=== PATIENT | male | born 1955 | race Caucasian/White ===

== ENCOUNTER → 2018-02-17 09:48 | Outpatient (CLI) | payer MEDICAID, SELFPAY ==
[2018-02-17 12:46] LABS: PSA,Total - Annual Screen < 0.01 ng/mL (0.00-4.00)
== END ==
PROVIDERS: Family Provider Family Medicine; PCP Family Medicine; Visit Provider Urology
DX: C61 Malignant neoplasm of prostate (principal)
CPT/HCPCS: 36415; 84153; G0103

== ENCOUNTER → 2018-06-23 10:52 | Outpatient (CLI) | payer MEDICAID, SELFPAY ==
[2018-06-23 12:30] LABS: Absolute Lymphocyte Count 1.28 X10^3/ul (0.83-4.51); Absolute Neutrophil Count 4.6 X10^3/uL (2.0-7.7); Basophil# 0.02 X10^3/uL; Basophil% 0.3 % (0-1); Eosinophil# 0.35 X10^3/uL; Eosinophils% 5.1 % (0-5); Hematocrit 46.1 % (40-54); Hemoglobin 15.1 g/dl (13.0-16.5); Lymphocyte # 1.28 X10^3/ul (4.0); Lymphocyte % 18.6 % (19-41); Mean Corp Hgb Conc 32.8 g/gl (32-36); Mean Corpuscular Hgb 30.3 pg (27.0-32.0); Mean Corpuscular Volume 92.4 fL (80-94); Mean Platelet Vol. 10.2 fl (6.2-12.0); Monocyte# 0.65 X10^3/uL; Monocyte% 9.4 % (0-10); Neutrophil # 4.58 X10^3/uL (2.7-7.7); Neutrophil % 66.6 % (47-70); POSITIVE COUNT NO; POSITIVE DIFFERENTIAL NO; POSITIVE MORPHOLOGY NO; Platelet Count 279 K/mm3 (150-450); RBC Distribution Width CV 13.4 % (11.6-14.6); RBC Distribution Width SD 44.9 fl (35.1-43.9); Red Blood Count 4.99 M/mm3 (4.6-6.2); White Blood Count 6.9 K/mm3 (4.4-11.0)
[2018-06-23 13:21] LABS: ALB/GLOB Ratio 0.9 RATIO (0.9-2.4); AST(SGOT) 26 U/L (15-37); Alanine Aminotransfer ALT/SGPT 41 U/L (16-61); Albumin, Serum 3.5 g/dL (3.2-5.0); Alkaline Phosphatase 64 U/L (45-117); Anion Gap 11 (5-15); BUN 21 mg/dL (7-18); BUN/Creat Ratio 16.2 RATIO (10-20); Calcium,Total 8.8 mg/dL (8.5-10.1); Chloride 106 mmol/L (98-107); EST Glomerular Filtration Rate 60 mL/min (>60); Est Glom Filt Rate - Afr Amer 72 mL/min (>60); Globulin 3.9 g/dL (2.2-4.2); Glucose 136 mg/dL (74-106); Magnesium 2.4 mg/dL (1.6-2.6); Potassium 3.7 mmol/L (3.5-5.1); Protein, Total 7.4 g/dL (6.4-8.2); Sodium Level 141 mmol/L (136-145); T4 Total, Thyroxin 11.2 ug/dL (4.5-12.1); Thyroid Stim Hormone (TSH) 1.55 uIU/mL (0.358-3.74)
== END ==
PROVIDERS: Family Provider Family Medicine; PCP Family Medicine; Visit Provider Family Medicine
DX: E03.9 Hypothyroidism, unspecified (principal); K21.9 Gastro-esophageal reflux disease without esophagitis; R53.81 Other malaise; R53.83 Other fatigue
CPT/HCPCS: 36415; 80053; 83735; 84436; 84443; 85025

== ENCOUNTER → 2019-02-16 11:14 | Outpatient (CLI) | payer MEDICAID, SELFPAY ==
[2017-03-15 10:44] VITALS: BMI 32.1
[2019-02-16 13:52] LABS: PSA,Total- Diagnostic < 0.01 ng/mL (0.0-4.0)
== END ==
PROVIDERS: Family Provider Family Medicine; PCP Family Medicine; Referring Provider Urology; Visit Provider Urology
DX: C61 Malignant neoplasm of prostate (principal)
CPT/HCPCS: 36415; 84153

== ENCOUNTER → 2019-06-01 10:50 | Outpatient (CLI) | payer MEDICAID, SELFPAY ==
[2017-03-15 10:44] VITALS: BMI 32.1
--- NOTE | 2019-06-01 11:05 | RAD_ITS ---
STUDY: X-RAY - RIGHT KNEE REASON FOR EXAM: Male, 63 years old. Medial pain. TECHNIQUE: 4 view(s) of the knee. COMPARISON: Right tibia-fibula radiographs that included the right knee 03/15/2017. FINDINGS: Normal visualized distal femur. Normal visualized proximal tibia and fibula. Normal proximal tibiofibular articulation. Pronounced narrowing of the medial femorotibial compartment with mild increase in sclerosis of the medial tibial plateau. Normal lateral femorotibial compartment. Normal patellofemoral articulation. The soft tissue structures are unremarkable. RAD/Knee 4 or More Views IMPRESSION: 1. More pronounced narrowing of the medial femorotibial compartment of the right knee and increased sclerosis of the medial tibial plateau when compared to 03/15/2017. 2. No acute osseous abnormality of the right knee. Electronically Signed: Raúl Viera MD at 16:07 EDT , Service support ,
== END ==
PROVIDERS: Family Provider Family Medicine; PCP Family Medicine; Referring Provider Family Medicine; Visit Provider Family Medicine
DX: M25.561 Pain in right knee (principal)
CPT/HCPCS: 73564

== ENCOUNTER → 2019-06-22 09:08 | Outpatient (CLI) | payer MEDICAID, SELFPAY ==
[2019-06-08 11:05] VITALS: BMI 31.3
--- NOTE | 2019-06-22 09:10 | MRI_ITS ---
STUDY: MRI RIGHT KNEE REASON FOR EXAM: Right knee pain for 6-8 weeks, arthroscopic surgery 12 years ago. TECHNIQUE: Standardized fat and water weighted pulse sequences were obtained in all 3 orthogonal planes. COMPARISON: Radiographs 06/01/2019 and MR images 04/01/2007. FINDINGS: There is a partial medial meniscectomy. There is a complex signal alteration of the posterior horn of the medial meniscus (proton density sagittal images 31-35), either scarring or recurrent medial meniscal tear. There is peripheral subluxation of the medial meniscus. There is arthrosis of the medial femorotibial compartment with small marginal osteophytes, chondral loss (T2 sagittal image 18) and slight subchondral bone edema. Normal medial collateral ligamentous complex (MCL). Normal distal semimembranosus, gracilis and semitendinosus tendons. Normal lateral meniscus. Normal hyaline cartilage of the lateral femorotibial compartment. Normal lateral femoral condyle and tibial plateau. Normal proximal tibiofibular articulation. Normal lateral collateral (fibular) ligament. Normal popliteus tendon. Normal biceps femoris tendon. There is mild intrasubstance mucoid degeneration of the anterior cruciate ligament (T2 sagittal image 12). Normal posterior cruciate ligament (PCL). Normal congruent patellofemoral articulation. Normal hyaline cartilage of the patellofemoral compartment. Normal medial and lateral patellar retinaculum. Normal quadriceps tendon. Normal patellar tendon. Normal Hoffa's fat pad. There is a small joint effusion. There is an intra-articular body in the distal popliteus tendon sheath (T2 coronal images 13, 14). There is a small popliteal cyst with extravasation of fluid (T2 coronal images 9, 10). There is a strain of the semimembranosus musculotendinous junction (T2 sagittal images 15-17) The otherwise visualized osseous structures are unremarkable. MRI/Lower Ext Joint Only (Routine) IMPRESSION: Partial medial meniscectomy with signal alteration of the posterior horn of the medial meniscus, either scarring or recurrent medial meniscal tear. Arthrosis of the medial femorotibial compartment. Strain of the semimembranosus musculotendinous junction. Small joint effusion. Small popliteal cyst with extravasation of fluid. Intra-articular body in the distal popliteus tendon sheath. Electronically Signed: Isaiah Muñiz MD at 10:54 EDT Tel , Service support ,
--- NOTE | 2019-06-22 09:15 | RAD_ITS ---
STUDY: X-RAY - ORBITS REASON FOR EXAM: Male, 63 years old. This study is being performed as a clearance examination for exclusion of orbital metal, prior to the performance of an MRI examination. TECHNIQUE: 2 view(s) of the orbits were obtained. COMPARISON: None. FINDINGS: Normal bilateral orbits without a metallic orbital foreign body. Normal visualized facial bones. Normal paranasal sinuses. The soft tissue structures are unremarkable. RAD/Orbits for Foreign Body IMPRESSION: No demonstrated metallic orbital foreign body. The patient is cleared for an MRI examination. Electronically Signed: Aaron Rg MD at 9:49 EDT Tel [phone], Service support ,
== END ==
PROVIDERS: Family Provider Family Medicine; PCP Family Medicine; Referring Provider Orthopaedic Surgery; Visit Provider Orthopaedic Surgery
DX: M25.561 Pain in right knee (principal)
CPT/HCPCS: 70030; 73721

== ENCOUNTER 2019-07-26 12:42 | Observation (INO) | payer MEDICAID, SELFPAY ==
[2019-06-29 10:18] VITALS: BMI 31.3
--- NOTE | 2019-07-07 15:03 | CASEMGMT ---
Social Work Note Marcie updated this worker that pt called in and wanted to know the game plan for pt after his surgery. Pt provided number [phone]. SW placed a call back to pt, call went straight to voicemail. SW left message for Sourav and updated him that this worker doesn't know what the game plan will be for pt as it depends on how pt's surgery goes and how well pt does after surgery. SW explained different options of HHC, outpatient therapy, and SNF and again explained that it just depends on how pt does after his surgery. SW provided direct number in the event Sourav would like to call this worker. Melissa Parr TRAVELING NURSE, [employer] SYSTEM INST[employer]ER
[2019-07-11 13:31] VITALS: BMI 31.3
[2019-07-19 15:37] VITALS: BP 112/89; PULSE 80; RESP 16; TEMP 36.9; O2SAT 98; BMI 30.8
[2019-07-19 17:20] LABS: Hematocrit 45.6 % (40-54); Hemoglobin 14.6 g/dL (13.0-16.5); Mean Corpuscular Hgb 29.9 pg (27.0-32.0); Mean Corpuscular Volume 93.4 fL (80-94); Mean Platelet Vol. 9.5 fl (6.2-12.0); Platelet Count 354 K/mm3 (150-450); RBC Distribution Width CV 12.3 % (11.6-14.6); RBC Distribution Width SD 42.7 fl (35.1-43.9); Red Blood Count 4.88 M/mm3 (4.6-6.2); White Blood Count 9.1 K/mm3 (4.4-11.0)
[2019-07-19 18:09] LABS: Thyroid Stim Hormone (TSH) 2.56 uIU/mL (0.358-3.74)
[2019-07-26] VITALS (10 sets, daily range): BP systolic 94–125; BP diastolic 52–87; PULSE 73–95; RESP 14–18; TEMP 36.3–36.9; O2SAT 93–100; BMI 30.8
--- NOTE | 2019-07-26 07:15 | PCM.HP.BLA ---
History and Physical Date of Admission: 07/26/19 Intake Vital Signs 06/29/19 Body Mass Index (BMI) 31.3 Intake Visit Reasons: R. KNEE Allergies No Known Allergies Allergy (Verified 03/15/17 10:45) Medications Levothyroxine [Synthroid] 50 mcg PO DAILY 03/15/17 [History Confirmed 06/29/19] amlodipine 5 mg tablet PO #30 tab 06/08/19 [History Confirmed 06/29/19] lisinopril 20 mg tablet PO #30 tab 06/29/19 [History Confirmed 06/29/19] [facility] Social History Smoking Status: Former smoker HPI R. KNEE : Details: Parts of this documentation were recorded by a scribe, this documentation accurately reflects the service provided and the decisions made by me, Braxton Vyas, 06/29/19 1017. NAHOMI MCCAULEY is a 64 year old M here today for right knee pain. Patient is here for F/U after MRI of the [facility] tknee. Patient is having painful catching and popping of the right knee. Most of his kene pain is medial and posterior knee pain. Denies numbness, tingling or other associated symptoms. Has been wearing a knee sleeve. Had an arthroscopy in 2006 but denies any previous injections. ROS Const Reports system reviewed and no additional complaints, except as docu Eyes Reports system reviewed and no additional complaints, except as docu ENT Reports system reviewed and no additional complaints, except as docu Card Reports system reviewed and no additional complaints, except as docu Resp Reports system reviewed and no additional complaints, except as docu GI Reports system reviewed and no additional complaints, except as docu Reports system reviewed and no additional complaints, except as docu Musc Reports system reviewed and no additional complaints, except as docu, Reports as per HPI Skin/Breast Reports system reviewed and no additional complaints, except as docu Neuro Yes system reviewed and no additional complaints, except as docu Psych Reports system reviewed and no additional complaints, except as docu Endo Reports system reviewed and no additional complaints, except as docu Jose/Lymph Reports system reviewed and no additional complaints, except as docu Aller/Immun Reports system reviewed and no additional complaints, except as docu Ortho Exam Right Knee Skin/Wound: No erythema, No ecchymosis, No swelling Homans Sign: No Knee ROM: No ROM-Extension -20 to 0 (lacking 3 ), No ROM-Flexion 0-140 (115) Stability: NML: Anterior Drawer, NML: Posterior Drawer KNEE: no joint effusion significant pain with medial isiah. Assessment & Plan Problems 1. Primary osteoarthritis of right knee M17.11 Plan Personally reviewed patients MRI of the right knee. Patient educated that he does have bone on bone medial sided knee OA. Options for this would be right TKA or medial freelance operator brace or steroid injection or gel-injections or PRP injection. Recommended the trial of a steroid injection of the right knee but with this he wouldn't be able to have a knee replacement until 12 weeks after injection if the injection is not effective. Patient wishes to discuss TKA as apposed to the injections. Reviewed the pre-operative plans with the patient. Risks and benefits of the procedure were fully explained, including but not limited to infection, neurovascular injury, continued pain, arthritis, stiffness, need for further surgery, re-injury, DVT, PE, general risks of anesthesia, and loss of limb or life. The patient understands all the risks and does wish to proceed with written consent. Educated that he will be on blood thinner for 2 weeks post op to aid in prevention of blood clots. Educated that the procedure takes about 60 minutes. Educated that the most important component post op is getting up and moving. Also given the option for Iovera treatment 10-14 days pre-op. Educated that is may take up to 6 weeks for him to feel comfortable with driving. Recommended preparing to take 8 weeks off work. Patient is wishing to have surgery 07/26/19 if this date changes patient will call the office. Follow up 2 weeks post op or to re-sign consent or sooner if pain, swelling, numbness or associated symptoms, or concerns develop. All questions answered. Patient in agreement of plan. Coding Diagnoses Primary osteoarthritis of right knee M17.11 I have re-examined the patient. There are no clinical changes since date of exam
[2019-07-26] MEDS: Scopolamine 1mg/72hr Patch 1 PATCH TRANSDERM. (07:30)
[2019-07-26] MEDS: Gabapentin 600 MG Tablet PO (07:30)
[2019-07-26] MEDS: Acetaminophen 500 MG Tablet 1000 MG PO ×3 (07:30→23:03)
[2019-07-26] MEDS: Lactated Ringers 1,000 ML 100 ML IV (08:05)
[2019-07-26] MEDS: Magnesium Sulfate 4gm/100mL 4 GM/100 ML IV.SOLN. IV (08:05)
[2019-07-26 08:45] LABS: Bedside Glucose 194 mg/dL (70-110)
[2019-07-26] MEDS: Cefazolin 2 GM in 0.9% Normal Saline 100 ML IV (10:49)
[2019-07-26] MEDS: dexAMETHasone 10 MG/ML Vial IV (11:02)
[2019-07-26] MEDS: Epinephrine (1 mg/ml) 1 MG/ML VIAL (12:06)
[2019-07-26] MEDS: Betamethasone/Betamethasone 30 MG/5 ML Vial (12:06)
[2019-07-26] MEDS: Bupivacaine Mpf 0.5% 30 ML VIAL (12:07)
--- NOTE | 2019-07-26 12:44 | OP.PCM_ITS ---
Report of Operation Date of Procedure: 07/26/19 Description of Surgical Findings:: Preoperative diagnosis: Right knee DJD Postoperative diagnosis: Same Procedure: Right total knee arthroplasty Implant: [place] tri[employer]lon cemented right femoral component size 4, cemented tibial baseplate size 5, cemented asymmetric patella size 32, polyethylene X3 size 9 CS Anesthesia: Spinal with adductor canal block Tourniquet time: 62 minutes at 300 mmHg Complications: None Condition: Stable to PACU Estimated blood loss: 30 cc Indication for procedure: This is a 64-year-old male with long standing degenerative joint disease of the knee who has failed conservative treatment and wished to proceed with elective total knee arthroplasty. Risk benefits and alternatives were reviewed including; risk of bleeding, infection, nerve artery and tissue damage, continued pain, postoperative stiffness, venous thromboembolism, need for postoperative rehabilitation, mechanical feel to the knee, and expected postoperative course. Procedure: The patient was met in the preoperative holding area. The operative extremity was identified by both patient and physician and was marked. Patient was met by anesthesia. An adductor canal block was placed by anesthesia postoperatively the patient was brought back to the operating room on a wheeled cart and transferred to the operating table in the supine position. Anesthesia was started. A well-padded tourniquet was placed on the operative extremity. The patient was prepped and draped in the usual sterile fashion. A timeout was called to ensure the proper patient procedure and extremity were being contemplated. An Esmarch was used to exsanguinate the extremity. The tour niquet was inflated. A 10 blade scalpel was used to make a midline incision down through the skin and subcutaneous tissue. Skin retractors placed. Bovie was used to perform meticulous hemostasis. full-thickness flaps were elevated medial and lateral along the joint capsule. A deep blade scalpel was used to perform a medial parapatellar arthrotomy. The knee was brought to full extension. A Bovie was used to release the soft tissues off the most proximal aspect of the medial tibial plateau a three-quarter inch curved osteotome was also used for this process. The infrapatellar fat pad was excised. The fat pad was excised partially anterior lateral portion the anterior medial was elevated from the femur. the patella was everted. The knee was brought into flexion. An intramedullary drill was used followed by flexible intramedullary guide suzette. The distal femoral cutting block was placed and set to remove 10 mm of bone and 5 degrees of valgus. The block was secured with pins and an oscillating saw was used to complete the distal femoral cut. During this, and all bony cuts retractors were used to protect the collateral ligaments. At this point a femoral sizer was used to measure the AP dimension of the femur. The sizer block was pinned parallel to the epicondylar access for external rotation. The sizing block was removed and the appropriately sized 4-in-1 cutting block was placed over the previously made pinholes. It was checked with an mario wing and the block was secured with pins. An oscillating saw was used to complete the anterior cut followed by the posterior cut followed by the posterior chamfer cut followed by the anterior chamfer cut. The block was removed as well as the fragments. A ronguer was used to remove excess osteophytes. The medial and lateral meniscus were excised as well as the ACL. At this point a PCL retractor was placed and an intramedullary drill was passed down the tibial canal followed by a solid intramedullary guide suzette. The tibial cutting block was attached and set to remove 9 mm of bone from the high side. This was checked with an external alignment drop suzette for slope and tilt. It was pinned into place. An oscillating saw was used to complete the tibial plateau cut and the block was removed. A large osteotome was used to elevate the fragment and a Allison and a Bovie were used to free the fragment from the surrounding soft tissue. A rongeur was once again used to remove osteophytes a lamina machine operators was used to evaluate the posterior capsular structures. A three-quarter inch curved osteotome was used to remove posterior osteophytes. A spacer block was inserted in both extension and flexion to ensure adequate spacing. Trials were inserted full extension and flexion were achieved in varus and valgus stability throughout range of motion were seen, balancing techniques were performed. At this point the attention was turned towards the patella. A caliper was used to ensure sufficient bone stock to remove 10 mm of bone. A reamer was used to perform this task. Lug holes were made for the appropriate-sized patella. The patella trial was inserted and there was good patellar tracking with knee range of motion. The tibial baseplate was allowed to float into rotation and was marked on the tibial plateau with a Bovie. Lug holes were made in the femur and trials were removed. The tibial baseplate was then sized and its preparation was completed with a fin punch. The knee was thoroughly irrigated. A posterior capsular injection was performed with our standard cocktail. The knee was brought into flexion and irrigated again. The tibial baseplate was cemented. Excess cement was removed with curettes. The polyethylene component was inserted. The femoral component was cemented. The knee was brought into full extension and placed on a bump. The patellar component was cemented. At this point a Betadine rinse was placed and thoroughly irrigated after a few minutes. This was followed by an Iricept rinse which was allowed to sit for 1 minute and then thoroughly irrigated.At this point all gloves were changed. The knee was thoroughly irrigated the joint capsule was closed with #1 Ethibond. Tourniquet was let down followed by 0 Vicryl and 2-0 Vicryl in the subcutaneous tissues. followed by patsy in the skin. Dressing was applied in the form of Mepilex silver dressing web roll and an Pollo wrap from the foot to the groin. The patient tolerated the procedure well, all counts were correct patient was brought back to the PACU in stable condition.
[2019-07-26 13:15] LABS: Bedside Glucose 167 mg/dL (70-110)
[2019-07-26] MEDS: Lactated Ringers 1,000 ML 125 ML IV ×2 (13:25→19:58)
--- NOTE | 2019-07-26 13:33 | RAD_ITS ---
STUDY: X-RAY - RIGHT KNEE REASON FOR EXAM: Postop. TECHNIQUE: 2 view(s) of the knee. COMPARISON: Radiographs 06/01/2019. FINDINGS: There is a right total hip arthroplasty without evidence of complication. There is postoperative gas in the soft tissues and overlying skin patsy. RAD/Knee 1 or 2 Views IMPRESSION: Uncomplicated right total knee arthroplasty. Electronically Signed: Isaiah Muñiz MD at 13:54 EDT Tel , Service support ,
[2019-07-26] MEDS: Cefazolin 1 GM/50 ML BAG IV ×2 (17:02→23:02)
[2019-07-26] MEDS: amLODIPine 5 MG Tablet PO (23:03)
[2019-07-26] MEDS: Senna/Docusate Sodium 1 Tablet 2 TABLET PO (23:04)
[2019-07-26] MEDS: oxyCODONE HCl Cr 10 MG Tablet PO (23:04)
[2019-07-27] MEDS: Levothyroxine 50 MCG Tablet PO (01:58)
[2019-07-27 02:01] VITALS: BP 120/62; PULSE 78; RESP 18; TEMP 36.7
[2019-07-27 05:53] LABS: Hematocrit 37.3 % (40-54); Hemoglobin 12.3 g/dL (13.0-16.5); Mean Corpuscular Hgb 30.5 pg (27.0-32.0); Mean Corpuscular Volume 92.6 fL (80-94); Mean Platelet Vol. 9.4 fl (6.2-12.0); Platelet Count 313 K/mm3 (150-450); RBC Distribution Width CV 12.7 % (11.6-14.6); RBC Distribution Width SD 43.3 fl (35.1-43.9); Red Blood Count 4.03 M/mm3 (4.6-6.2); White Blood Count 18.2 K/mm3 (4.4-11.0)
[2019-07-27 06:16] LABS: Anion Gap 8 (5-15); BUN 17 mg/dL (7-18); BUN/Creat Ratio 14.4 RATIO (10-20); Calcium,Total 8.4 mg/dL (8.5-10.1); Chloride 109 mmol/L (98-107); Creatinine, Serum 1.18 mg/dL (0.70-1.30); EST Glomerular Filtration Rate 67 mL/min (>60); Est Glom Filt Rate - Afr Amer 80 mL/min (>60); Estimated Creatinine Clearance 60.69 ml/min; Glucose 143 mg/dL (74-106); Potassium 4.4 mmol/L (3.5-5.1); Sodium Level 142 mmol/L (136-145)
[2019-07-27] MEDS: Acetaminophen 500 MG Tablet 1000 MG PO ×3 (06:57→21:50)
[2019-07-27] MEDS: Cefazolin 1 GM/50 ML BAG IV (07:00)
[2019-07-27] MEDS: Lactated Ringers 1,000 ML 125 ML IV (07:01)
[2019-07-27] MEDS: oxyCODONE 5 MG Tablet PO ×3 (07:32→20:01)
--- NOTE | 2019-07-27 10:15 | CASEMGMT ---
RN CM Face to Face with patient for initial transition planning/care coordination assessment. RN CM introduced self and role at [facility]. Patient sitting in chair, alert and oriented. Patient willing to participate in assessment and is able to answer all questions appropriately. Care providers, pharmacy, and demographics verified. Patient wishes to discharge home and would like HHC, list provided to patient of in-network HHC companies to review. Patient states he has no further needs or concerns at this time. CM to follow for discharge planning needs that may arise. PCP: Sangeetha Specialists: Sees a urologist in [place] Preferred Pharmacy: [facility] Insurance: [employer] Prescription Benefit: yes Living Will/HPOA: none LNOK: Friend, sisters Living Arrangements: Patient lives alone in 3 story home with bed and bath on the 2nd floor Transportation: sisters, friends DME/HHC: Patient states he has shower chair, BSC, grab bars, walker, cpap at home. Patient to review list of HHC and CM will follow-up. Disposition Plan: Patient to discharge home with HHC, family support, and follow-up plans in place. Melissa FERNANDEZ, RN, CM
[2019-07-27] MEDS: Cyanocobalamin 500 MCG Tablet 1000 MCG PO (10:51)
[2019-07-27] MEDS: Lisinopril 20 MG Tablet PO (10:51)
[2019-07-27] MEDS: Pantoprazole Sodium 20 MG Tablet PO (10:51)
[2019-07-27] MEDS: Senna/Docusate Sodium 1 Tablet 2 TABLET PO ×2 (10:51→21:50)
[2019-07-27] MEDS: oxyCODONE HCl Cr 10 MG Tablet PO (10:55)
[2019-07-27] MEDS: APIXABAN 2.5 MG TABLET PO ×2 (10:55→21:50)
[2019-07-27] MEDS: Ascorbic Acid 500 MG Tablet PO (10:57)
[2019-07-27 11:00] VITALS: BP 131/77; PULSE 79; RESP 18; TEMP 36.6; O2SAT 99
--- NOTE | 2019-07-27 13:33 | DCINST_ITS ---
Weight Bearing Status: Weight bearing as tolerated Call your doctor if you observe: Fever of 101 or Higher, Shortness of breath, Chest pain Additional Instructions: Ice and elevate next week while not ambulating. Encourage ambulation weightbearing as tolerated. Encourage FULL knee extension and flexion 1 time EVERY time you get up and down and MULTIPLE times per day. Begin showering postop day #3. Remove the dressing prior to shower gently wash with warm water and antibacterial soap then pat dry place ABD pad and DEB hose over top. This is to be done daily. do not submerge for 3 weeks. If not showering daily must clean incision and change dressing daily. Do not allow animals near incision keep clean. Follow anticoagulation recommendations. Call Dr. Vyas with any concerns. Allergies/Adverse Reactions: Allergies No Known Allergies Allergy (Verified 03/15/17 10:45) Medications to take at Discharge Levothyroxine [Synthroid] 50 mcg PO DAILY 03/15/17 amlodipine 5 mg tablet 5 mg PO QHS #30 tab 06/08/19 lisinopril 20 mg tablet 20 mg PO DAILY #30 tab 06/29/19 Ascorbic Acid [Vitamin C] 500 mg PO DAILY 07/19/19 Cyanocobalamin (Vitamin B-12) [Vitamin B-12] 1,000 mcg PO DAILY 07/19/19 Esomeprazole Magnesium [Nexium 24Hr] 20 mg PO DAILY 07/19/19 Glucos Sul 2Kcl/MSM/Chond/C/Mn [Glucosamine Chondroitin Cap] 1 ea PO DAILY 07/19/19 Hyalur AC/Chond Sul/Colg II/Aa [Hyaluronic Acid 40 mg Capsule] 1 ea PO DAILY 07/19/19 Multivitamin with Minerals [Multiple Vitamin] 1 ea PO DAILY 07/19/19 Acetaminophen [Tylenol] 1,000 mg PO Q8 #100 tab 07/27/19 Apixaban [Eliquis] 2.5 mg PO BID #42 tab 07/27/19 Oxycodone [Oxyir] 5 - 10 mg PO Q4H PRN PRN 7 Days #60 tablet 07/27/19 The following prescriptions were given: Apixaban [Eliquis] 2.5 mg PO BID #42 tab Transmission Status: Pending to [facility] Oxycodone [Oxyir] 5 - 10 mg PO Q4H PRN PRN 7 Days #60 tablet PRN Reason: Mod-Severe Pain (4-08/11) Transmission Status: Sent to [facility] Acetaminophen [Tylenol] 1,000 mg PO Q8 #100 tab Transmission Status: Pending to [facility] #[facility] Primary Care Physician: Elida Vivas MD [Primary Care Provider] - Test Results: Test results from this visit will be discussed in further detail at your follow- up appointment, if applicable. Please Follow Up With: Braxton Vyas DO - 2 Weeks
--- NOTE | 2019-07-27 13:42 | PCM.PN.ORT ---
Subjective: complaint of anterior knee pain. He does not feel comfortable being discharged home today he feels that as he has a trilevel house and no one at home he would feel more comfortable getting additional physical therapy before returning home. - Physical Exam General: Alert, Oriented x3, Cooperative, No apparent distress Extremities: - - Compartment soft neurovascular intact EHL tibialis anterior gastrocsoleus dressing clean dry and intact Vital Signs Temp Pulse Resp BP Pulse Ox 97.9 F 79 18 131/77 H 99 07/27/19 11:00 07/27/19 11:00 07/27/19 11:00 07/27/19 11:00 07/27/19 11:00 Oxygen Flow Rate (L/min) 6 Oxygen Delivery Method Room Air Weight: 196 lb 13.965 oz Body Mass Index (BMI) 30.8 Intake and Output for Last 24 Hours 07/25/19 07/26/19 07/27/19 23:59 23:59 23:59 Intake Total 2961.25 / 2961.25 1625.00 / 1625.00 Output Total 100 / 1175 2275 / 2275 Balance 2861.25 / 1786.25 -650.00 / -650.00 Laboratory Tests Past 24 Hrs 07/27/19 07/27/19 05:30 05:30 WBC 18.2 H RBC 4.03 L Hgb 12.3 L Hct 37.3 L MCV 92.6 MCH 30.5 MCHC 33.0 RDW Std Deviation 43.3 RDW Coeff of Garth 12.7 Plt Count 313 MPV 9.4 Sodium 142 Potassium 4.4 Chloride 109 H Carbon Dioxide 25.0 Anion Gap 8 BUN 17 Creatinine 1.18 Estim Creat Clear Calc 60.69 Est GFR (MDRD) Af Amer 80 Est GFR (MDRD) Non-Af 67 BUN/Creatinine Ratio 14.4 Glucose 143 H Calcium 8.4 L Medical Necessity - Tobacco Use Smoking Status: Former smoker Tobacco Use: Non-smoker Assessment/Plan Postop day #1 right total knee arthroplasty DVT prophylaxis SCDs Eliquis DEB hose PT OT OT weightbearing as tolerated She does not feel comfortable being discharged home requesting further additional therapy in the hospital We will keep him overnight for additional therapy and discharge tomorrow with home health care his pain regimen is okay at this point
--- NOTE | 2019-07-27 14:50 | CASEMGMT ---
RN SHREYA NOTE: Call placed to pts [address]st choice of [facility] agency:[facility] w/referral and spoke with Ludmila. She states they are not able to provide assisted care for wounds at this time and unable to provide PT/OT on it's own without assisted services as well. Call placed to pt's 2nd choice of [facility] agency: [facility] of [facility]. Referral made and referral packet faxed to them. Awaiting acceptance. [facility], [place]: PH: [phone] Nisa FERNANDEZ RN CM
[2019-07-27 17:00] VITALS: BP 144/68; PULSE 89; RESP 18; TEMP 36.4; O2SAT 98
[2019-07-27 19:56] VITALS: BP 149/70; PULSE 83; RESP 18; TEMP 37.1; O2SAT 96
[2019-07-27] MEDS: amLODIPine 5 MG Tablet PO (21:50)
[2019-07-28] MEDS: oxyCODONE 5 MG Tablet PO ×4 (01:00→15:04)
[2019-07-28 02:03] VITALS: BP 150/78; PULSE 74; RESP 18; TEMP 36.9; O2SAT 98
[2019-07-28] MEDS: Levothyroxine 50 MCG Tablet PO (02:21)
[2019-07-28] MEDS: Acetaminophen 500 MG Tablet 1000 MG PO ×2 (05:11→14:52)
[2019-07-28 05:40] LABS: Hematocrit 38.2 % (40-54); Hemoglobin 12.2 g/dL (13.0-16.5); Mean Corp Hgb Conc 31.9 g/dL (32-36); Mean Corpuscular Hgb 30.1 pg (27.0-32.0); Mean Corpuscular Volume 94.3 fL (80-94); Mean Platelet Vol. 9.4 fl (6.2-12.0); Platelet Count 320 K/mm3 (150-450); RBC Distribution Width CV 13.1 % (11.6-14.6); RBC Distribution Width SD 45.2 fl (35.1-43.9); Red Blood Count 4.05 M/mm3 (4.6-6.2); White Blood Count 15.4 K/mm3 (4.4-11.0)
[2019-07-28 08:00] VITALS: BP 144/77; PULSE 80; RESP 18; TEMP 37; O2SAT 98
[2019-07-28] MEDS: Cyanocobalamin 500 MCG Tablet 1000 MCG PO (08:28)
[2019-07-28] MEDS: Ascorbic Acid 500 MG Tablet PO (08:29)
[2019-07-28] MEDS: Ketorolac 30 MG/ML Syringe 15 MG IV (10:16)
[2019-07-28] MEDS: Senna/Docusate Sodium 1 Tablet 2 TABLET PO (10:19)
[2019-07-28] MEDS: Lisinopril 20 MG Tablet PO (10:19)
[2019-07-28] MEDS: APIXABAN 2.5 MG TABLET PO (10:19)
[2019-07-28] MEDS: Pantoprazole Sodium 20 MG Tablet PO (10:19)
--- NOTE | 2019-07-28 11:45 | CASEMGMT ---
FILIBERTO CASH called [facility] to confirm HHC setup. [facility] is able to accept the patient with start of care for tomorrow. FILIBERTO CASH updated the patient regarding HHC setup with [facility]. Patient voiced understanding and had no other questions regarding discharge planning.
--- NOTE | 2019-07-28 12:16 | PCM.PN.ORT ---
Subjective: Patient doing pretty well today. He is having some pain which he states has improved some since this morning as it was pretty sore upon waking up. He states that he was able to walk this morning but that it was sore as well. He denies any fevers, chills, shortness of breath, nausea, vomiting, calf pains, numbness or tingling in the leg. He s Objective: Patient is ambulating to the dining room when I arrived. He is alert and oriented x 3, conversive, and cooperative and shows mild signs of discomfort with ambulation. He currently in Deb hose and underling bandage is dry with a very small patch of dried blood on the superior portion of the bandage. There is no erythema or inflammation surrounding the occlusive dressing. Minimal discomfort on palpation around the incision. No evidence of dyspnea while ambulating. - Physical Exam General: Alert, Oriented x3, Cooperative, No apparent distress, Well developed, Well nourished Oral: Moist Mucosa Extremities: No cyanosis, No Calf Tenderness, Peripheral Pulses Normal Skin: No rashes, No breakdown Neurological: Sensory exam intact to light touch and pain Vital Signs Temp Pulse Resp BP Pulse Ox 98.6 F 80 18 144/77 H 98 07/28/19 08:00 07/28/19 08:00 07/28/19 08:00 07/28/19 08:00 07/28/19 08:00 Oxygen Flow Rate (L/min) 6 Oxygen Delivery Method Room Air Weight: 196 lb 13.965 oz Body Mass Index (BMI) 30.8 Intake and Output for Last 24 Hours 07/26/19 07/27/19 07/28/19 23:59 23:59 23:59 Intake Total 2961.25 / 2961.25 1625.00 / 2125.00 800 / 800 Output Total 100 / 1175 2275 / 2275 300 / 300 Balance 2861.25 / 1786.25 -650.00 / -150.00 500 / 500 Laboratory Tests Past 24 Hrs 07/28/19 05:16 WBC 15.4 H RBC 4.05 L Hgb 12.2 L Hct 38.2 L MCV 94.3 H MCH 30.1 MCHC 31.9 L RDW Std Deviation 45.2 H RDW Coeff of Garth 13.1 Plt Count 320 MPV 9.4 Medical Necessity - Tobacco Use Smoking Status: Former smoker Tobacco Use: Non-smoker Assessment/Plan Status post day #2 total knee replacement of the right knee Vitals have been stable He is to continue DEB hose even after discharge and SCDs until discharge Eliquis to be continued for 2 weeks Dressing can be taken off on day 3 and he can shower at that time (gentle cleansing, no scrubbing) Daily dressing changes thereafter monitoring for erythema, discharge, inflammation, or signs of infection notify of calf pains or tenderness. Patient to proceed with home PT / OT (working on getting full extension and working on flexion) weightbearing as tolerated
--- NOTE | 2019-07-28 12:30 | PCM.DC.SUM ---
Discharge Date and Diagnosis Date of Admission: 07/26/19 Date of Discharge: 07/28/19 - Primary Discharge Diagnosis Right total knee replacement secondary to primary osteoarthritis Hospital Course and Treatment Operations: total knee replacement Summary of Care Provided: The patient is a 64 year old M with a history of chronic right knee pain that has failed conservative treatment to this point. As a results of failed conservative treatment patient wanted to proceed with total knee replacement. Patient underwent this procedure on 07-26-19 without any complications. - Physical Exam General: Alert, Oriented x3, Cooperative, No apparent distress - mild discomfort with ambulation and movements, Well developed, Well nourished Oral: Moist Mucosa Extremities: No clubbing, No cyanosis, No Calf Tenderness, Peripheral Pulses Normal Vital Signs Temp Pulse Resp BP Pulse Ox 98.6 F 80 18 144/77 H 98 07/28/19 08:00 07/28/19 08:00 07/28/19 08:00 07/28/19 08:00 07/28/19 08:00 Oxygen Flow Rate (L/min) 6 Oxygen Delivery Method Room Air Weight: 196 lb 13.965 oz Body Mass Index (BMI) 30.8 Intake and Output for Last 24 Hours 07/26/19 07/27/19 07/28/19 23:59 23:59 23:59 Intake Total 2961.25 / 2961.25 1625.00 / 2125.00 800 / 800 Output Total 100 / 1175 2275 / 2275 300 / 300 Balance 2861.25 / 1786.25 -650.00 / -150.00 500 / 500 Laboratory Tests Past 24 Hrs 07/28/19 05:16 WBC 15.4 H RBC 4.05 L Hgb 12.2 L Hct 38.2 L MCV 94.3 H MCH 30.1 MCHC 31.9 L RDW Std Deviation 45.2 H RDW Coeff of Garth 13.1 Plt Count 320 MPV 9.4 Weight Bearing Status: Weight bearing as tolerated Call your doctor if you observe: Fever of 101 or Higher, Shortness of breath, Chest pain Home Medications: Medications to take at Discharge Levothyroxine [Synthroid] 50 mcg PO DAILY 03/15/17 amlodipine 5 mg tablet 5 mg PO QHS #30 tab 06/08/19 lisinopril 20 mg tablet 20 mg PO DAILY #30 tab 06/29/19 Ascorbic Acid [Vitamin C] 500 mg PO DAILY 07/19/19 Cyanocobalamin (Vitamin B-12) [Vitamin B-12] 1,000 mcg PO DAILY 07/19/19 Esomeprazole Magnesium [Nexium 24Hr] 20 mg PO DAILY 07/19/19 Glucos Sul 2Kcl/MSM/Chond/C/Mn [Glucosamine Chondroitin Cap] 1 ea PO DAILY 07/19/19 Hyalur AC/Chond Sul/Colg II/Aa [Hyaluronic Acid 40 mg Capsule] 1 ea PO DAILY 07/19/19 Multivitamin with Minerals [Multiple Vitamin] 1 ea PO DAILY 07/19/19 Acetaminophen [Tylenol] 1,000 mg PO Q8 #100 tab 07/27/19 Apixaban [Eliquis] 2.5 mg PO BID #42 tab 07/27/19 miscellaneous medical supply misc See Rx Instructions .ROUTE .MEDSUPPLY #1 ea 09/05/19 Following Prescrptions Were Given to Patient: Apixaban [Eliquis] 2.5 mg PO BID #42 tab Transmission Status: Received by [facility] #[facility] Acetaminophen [Tylenol] 1,000 mg PO Q8 #100 tab Transmission Status: Received by [facility] Primary Care Physician: Elida Vivas MD [Primary Care Provider] - Please Follow Up With: Braxton Vyas, - 2 Weeks Additional Instructions: Ice and elevate next week while not ambulating. Encourage ambulation weightbearing as tolerated. Encourage FULL knee extension and flexion 1 time EVERY time you get up and down and MULTIPLE times per day. Begin showering postop day #3. Remove the dressing prior to shower gently wash with warm water and antibacterial soap then pat dry place ABD pad and DEB hose over top. This is to be done daily. do not submerge for 3 weeks. If not showering daily must clean incision and change dressing daily. Do not allow animals near incision keep clean. Follow anticoagulation recommendations. Call Dr. Vyas with any concerns. Medical Necessity - Tobacco Use Smoking Status: Former smoker Tobacco Use: Non-smoker Meaningful Use Info Meaningful Use Diagnoses (Choose all that apply): None applicable
[2019-07-28 15:05] VITALS: BP 148/79; PULSE 95; RESP 18; TEMP 36.6; O2SAT 100
--- NOTE | 2019-07-29 10:49 | DS.PCM_ITS ---
Discharge Date and Diagnosis Date of Admission: 07/26/19 Date of Discharge: 07/28/19 Hospital Course and Treatment Operations: total knee replacement, - Summary of Care Provided: The patient is a 64 year old M who has long history of degenerative joint disease to the knee who has failed conservative treatment and wished to undergo elective total knee arthroplasty. Patient underwent the aformentioned procedure on the admission date without any intraoperative complications. Patient did receive pre-and postoperative antibiotics which were discontinued within 23 hours postoperatively. Patient did receive spinal anesthesia as well as an ad ductor canal block postoperatively. pain was controlled with IV and transition to p.o. pain medication Patient will be discharged home with oxycodone and will continue Tylenol as well. Patient had minimal intraoperative blood loss and tranexamic acid was administered there was no need for postoperative blood transfusion her vital signs remained stable. Patient was started on both mechanical and chemical DVT per prophylaxis postoperatively in the form of SCDs DEB hose and Eliquis 2.5 mg twice daily for which she will continue for 2 additional weeks post hospital discharge. Pollo removed post op day number one and thigh high deb hose placed over top of the meplix silver dressing. This should be removed 72 hrs post operatively and showering begun daily at that time with warm water and antibacterial soap. not to submerge for 3 weeks. l change dressing daily at that point. Patient will follow-up in the office in 2 weeks. No intrahospital complications. - Physical Exam General: Alert, Oriented x3, Cooperative Extremities: - - unChanged Vital Signs Temp Pulse Resp BP Pulse Ox 97.9 F 95 18 148/79 H 100 07/28/19 15:05 07/28/19 15:05 07/28/19 15:05 07/28/19 15:05 07/28/19 15:05 Oxygen Flow Rate (L/min) 6 Oxygen Delivery Method Room Air Weight: 196 lb 13.965 oz Body Mass Index (BMI) 30.8 Intake and Output for Last 24 Hours 07/27/19 07/28/19 07/29/19 23:59 23:59 23:59 Intake Total 1625.00 / 2125.00 800 / 800 Output Total 2275 / 2275 300 / 300 Balance -650.00 / -150.00 500 / 500 Weight Bearing Status: Weight bearing as tolerated Call your doctor if you observe: Fever of 101 or Higher, Shortness of breath, Chest pain Home Medications: Medications to take at Discharge Levothyroxine [Synthroid] 50 mcg PO DAILY 03/15/17 amlodipine 5 mg tablet 5 mg PO QHS #30 tab 06/08/19 lisinopril 20 mg tablet 20 mg PO DAILY #30 tab 06/29/19 Ascorbic Acid [Vitamin C] 500 mg PO DAILY 07/19/19 Cyanocobalamin (Vitamin B-12) [Vitamin B-12] 1,000 mcg PO DAILY 07/19/19 Esomeprazole Magnesium [Nexium 24Hr] 20 mg PO DAILY 07/19/19 Glucos Sul 2Kcl/MSM/Chond/C/Mn [Glucosamine Chondroitin Cap] 1 ea PO DAILY 07/19/19 Hyalur AC/Chond Sul/Colg II/Aa [Hyaluronic Acid 40 mg Capsule] 1 ea PO DAILY 07/19/19 Multivitamin with Minerals [Multiple Vitamin] 1 ea PO DAILY 07/19/19 Acetaminophen [Tylenol] 1,000 mg PO Q8 #100 tab 07/27/19 Apixaban [Eliquis] 2.5 mg PO BID #42 tab 07/27/19 Oxycodone [Oxyir] 5 - 10 mg PO Q4H PRN PRN 7 Days #60 tab 07/27/19 Following Prescrptions Were Given to Patient: Apixaban [Eliquis] 2.5 mg PO BID #42 tab Transmission Status: Received by [facility]30 Oxycodone [Oxyir] 5 - 10 mg PO Q4H PRN PRN 7 Days #60 tab PRN Reason: Mod-Severe Pain (4-08/11) Transmission Status: Received by [facility] #30 Acetaminophen [Tylenol] 1,000 mg PO Q8 #100 tab Transmission Status: Received by [facility]30 Primary Care Physician: Elida Vivas MD [Primary Care Provider] - Please Follow Up With: Braxton Vyas DO - 2 Weeks Additional Instructions: Ice and elevate next week while not ambulating. Encourage ambulation weightbearing as tolerated. Encourage FULL knee extension and flexion 1 time EVERY time you get up and down and MULTIPLE times per day. Begin showering postop day #3. Remove the dressing prior to shower gently wash with warm water and antibacterial soap then pat dry place ABD pad and DEB hose over top. This is to be done daily. do not submerge for 3 weeks. If not showering daily must clean incision and change dressing daily. Do not allow animals near incision keep clean. Follow anticoagulation recommendations. Call Dr. Vyas with any concerns. Medical Necessity - Tobacco Use Smoking Status: Former smoker Tobacco Use: Non-smoker Meaningful Use Info Meaningful Use Diagnoses (Choose all that apply): None applicable
== END 2019-07-28 16:15 | disposition home health service (06) ==
LOC: MS3 07-27 08:21
PROVIDERS: Anesthesiology; Admitting Provider Orthopaedic Surgery; Family Provider Family Medicine; PCP Family Medicine; Referring Provider Orthopaedic Surgery; Visit Provider Orthopaedic Surgery
PROC: (CPT 27447; principal; 2019-07-26 09:05)
DX: M17.11 Unilateral primary osteoarthritis, right knee (principal); E07.9 Disorder of thyroid, unspecified; K21.9 Gastro-esophageal reflux disease without esophagitis; G47.33 Obstructive sleep apnea (adult) (pediatric); Z87.891 Personal history of nicotine dependence; Z79.899 Other long term (current) drug therapy; Z85.46 Personal history of malignant neoplasm of prostate
CPT/HCPCS: 27447; 64447; 36415; 73560; 80048; 82962; 84443; 85027; 87077; 87081; 93005; 96361; 96365; 96366; 96375; 97110; 97116; 97163; 97166; 97530; 99218; C1776; J7120; G0378; G0379; J0702; J2405; J3490

== ENCOUNTER 2019-09-30 10:00 | Outpatient (RCR) | payer MEDICAID, SELFPAY ==
[2019-08-08 14:58] VITALS: BMI 30.8
--- NOTE | 2019-08-22 11:03 | HP.PTEVAL_ITS ---
Patient's Visit Information NAHOMI MCCAULEY is a 64 year old M referred to Physical Therapy by Braxton Vyas DO with a diagnosis of R TKR s/p 07/26/19. Date of Evaluation: 08/22/19 Physical Therapist: JULIA Hammond - Visit Plan Frequency: 3x /Week Duration: 6 Weeks Plan: 3X/ week for 6 weeks for R knee AROM, PROM, stretching, strengthening, gait training, functional activities with HEP and modalities as needed. - Subjective Findings: Pt has had home health S/P surgery. S/P R TKR 07/26/19. He is not sleeping at night and has a dull ache and it is keeping him up at night. The last home health doug told him that pain is an indicator and he should back down the exercises. Thursday, Sat and SUn he backed down his activity and he is a little better sleeping. Home exercises at home: step stretch, LAQ (hard to do), SLR ( hard to do). Iovera treatment to block nerves to help with post op pain. Still uses a walker in the middle of the night and uses a Quad cane to walk. - Pain R knee pain Pain Intensity (Out of 10): 1 Pain Intensity Range: 3 Comment: middle of night - Objective Gait: Walks with SBQC with decrease stride and WBOS and decrease heel to toe pattern. Sit to stand: stands with R leg out in fron of him. Able to try to sit to stand without UE support and R leg slightly out.... R knee AROM: -1 degree from full extension and 86 degrees R knee flexion. L knee AROM: 0 degrees extension and 132 degrees L knee flexion. Ther-ex: Nu-step L1 seat #5 X 5 min and then seat #4 X 6 min to increase ROM - Goals Goal 1:: I HEP Goal Time Frame: 4-6 Weeks Goal 2:: Increase R knee AROM 0-120 degrees AROM Goal Time Frame: 4-6 Weeks Goal 3:: Be able to walk with a normal gait pattern without AD Goal Time Frame: 4-6 Weeks Goal 4:: Be able to sit to stand without using UE with R knee not out in front of him Goal Time Frame: 4-6 Weeks - Rehabilitation Potential Rehabilitation Potential: Excellent - Anticipated Interventions Patient/Client Instruction: Educate patient on: Plan of Care For the Purpose of:: To decrease pain, To decrease swelling/inflammation, To increase ROM, To improve nutrient delivery to tissue, To improve muscle perf ormance and motor function, To improve ability to perform ADL's, To increase tolerance to activity/condition/position, To improve performance and independence with ADL's, To decrease level of supervision to perform tasks, To improve ability of physical actions for home/community/work/leisure, To improve gait and locomotor functions, To improve health of tissue, To decrease soft tissue restriction, To increase flexibility/ROM, To improve balance, To improve safety with gait, To improve health and function Therapeutic Exercise to Include: Strength training, Endurance training, Balance training, Gait and locomotor training, Passive ROM, Active ROM For the Purpose of:: To decrease pain, To decrease swelling/inflammation, To increase ROM, To improve nutrient delivery to tissue, To improve muscle performance and motor function, To improve ability to perform ADL's, To increase tolerance to activity/condition/position, To improve performance and independence with ADL's, To decrease level of supervision to perform tasks, To improve ability of physical actions for home/community/work/leisure, To improve gait and locomotor functions, To decrease soft tissue restriction, To increase flexibility/ROM, To improve balance, To improve safety with gait Functional Training to Include: Gait training For the Purpose of:: To improve gait and locomotor functions, To improve safety with gait Manual Therapy Techniques to Include: Passive ROM, Soft tissue mobilization For the Purpose of:: To decrease pain, To increase ROM, To improve nutrient delivery to tissue, To improve muscle performance and motor function, To improve ability to perform ADL's, To increase tolerance to activity/condition/position, To improve performance and independence with ADL's IF ES: Yes Cryotherapy (ice pack, ice massage): Yes For the Purpose of:: To decrease pain, To decrease swelling/inflammation, To increase ROM, To improve nutrient delivery to tissue Thank you for the opportunity to evaluate your patient. For Medicare and Medicare HMO plans, please review the plan of care and approve it. It will need to be FAXED BACK to us at [phone] for Medicare purposes. For Medicare only, by signing this I certify the plan of care. Please let me know if there are questions or concerns regarding this plan of care. Physician Signature: Date:
--- NOTE | 2019-10-03 12:00 | HP.PTDCSUM ---
HP - PT D/C Summary It has been my pleasure to treat NAHOMI MCCAULEY under orders from Braxton Vyas DO, for the diagnosis of R TKR s/p 07/26/19 for a total of 17 visit(s). Discharge Date: 10/03/19 Please see the following information for a summary of their discharge status. - Subjective Subjective: Pt states his pain level and functional mobility is still up and down. Not too bad coming in today. - Pain R knee pain Pain Intensity (Out of 10): 0 - Overall Improvement % Improvement: 85 - Objective Objective/Function: Pt did real well with minimal progressions today. Remains challenged quite a bit. Still some aches and pains t/o, but nothing to the extreme he needed to stop. Stated feeling pretty good afterwards - noticed he had a more fluid gait pattern. - Goals Goal 1:: I HEP Goal Progress: Goal Met Goal 2:: Increase R knee AROM 0-120 degrees AROM Goal Progress: Goal Met Goal 3:: Be able to walk with a normal gait pattern without AD Goal Progress: Progressing Goal 4:: Be able to sit to stand without using UE with R knee not out in front of him Goal Progress: Goal Met - Plan Plan: Had pt fill out LEFS. States he wants to d/c today and plans RTW next week. No quetions with HEP or functional limitations at this time. Pleased overall with his therapy here and his progress/outcomes. - D/C Information Discharge Comments: DC PT to HEP If there are questions or concerns regarding this patient's physical therapy, please feel free to call me at [phone]. Thank you for the referral of this patient. Sincerely, Lenka Pierre, MPT
== END 2019-09-30 19:00 | disposition home or self-care (01) ==
LOC: PT 10:00
PROVIDERS: Family Provider Family Medicine; PCP Family Medicine; Referring Provider Orthopaedic Surgery; Visit Provider Orthopaedic Surgery
DX: Z96.651 Presence of right artificial knee joint (principal)
CPT/HCPCS: 97110; 97161

== ENCOUNTER → 2019-10-19 15:37 | Outpatient (CLI) | payer MEDICAID, SELFPAY ==
[2019-09-05 09:39] VITALS: BMI 30.8
--- NOTE | 2019-10-19 15:38 | RAD_ITS ---
STUDY: X-RAY - RIGHT KNEE REASON FOR EXAM: Male, 64 years old. Postop follow-up TECHNIQUE: 4 view(s) of the knee. COMPARISON: Previous study of 07/26/2019 FINDINGS: Status post total right knee replacement changes are noted with implants appearing in good position. There is no evidence of implant loosening or new associated fracture or dislocation. There has been interval removal of anterior skin patsy seen on the prior study. RAD/Knee 4 or More Views IMPRESSION: Status post total right knee replacement changes seen with implants appearing in good position. Electronically Signed: Jeff Duran MD at 23:09 EST , Service support ,
== END ==
PROVIDERS: Family Provider Family Medicine; PCP Family Medicine; Referring Provider Orthopaedic Surgery; Visit Provider Orthopaedic Surgery
DX: M25.561 Pain in right knee (principal)
CPT/HCPCS: 73564

== ENCOUNTER → 2020-02-15 08:53 | Outpatient (CLI) | payer MEDICAID, SELFPAY ==
[2019-09-05 09:39] VITALS: BMI 30.8
[2020-02-15 10:21] LABS: PSA,Total - Annual Screen < 0.01 ng/mL (0.00-4.00)
== END ==
PROVIDERS: PCP Family Medicine; Referring Provider Urology; Visit Provider Urology
DX: C61 Malignant neoplasm of prostate (principal)
CPT/HCPCS: 36415; 84153; G0103

== ENCOUNTER → 2020-06-06 16:11 | Outpatient (CLI) | payer MEDICAID, SELFPAY ==
[2019-09-05 09:39] VITALS: BMI 30.8
[2020-06-06 18:42] LABS: Anion Gap 8 (5-15); BUN 23 mg/dL (7-18); BUN/Creat Ratio 16.8 RATIO (10-20); Calcium,Total 9.5 mg/dL (8.5-10.1); Chloride 107 mmol/L (98-107); Cholesterol 144 mg/dL (200); Creatinine, Serum 1.37 mg/dL (0.70-1.30); EST Glomerular Filtration Rate 56 mL/min (>60); Est Glom Filt Rate - Afr Amer 68 mL/min (>60); Glucose 109 mg/dL (74-106); High Density Lipoprotein 28 mg/dL; Potassium 3.9 mmol/L (3.5-5.1); Sodium Level 138 mmol/L (136-145); T4 Total, Thyroxin 9.7 ug/dL (4.5-12.1); Thyroid Stim Hormone (TSH) 2.41 uIU/mL (0.358-3.74); Triglycerides 242 mg/dL; Very Low Density Lipoprotein 48 mg/dL (5-40)
== END ==
PROVIDERS: PCP Family Medicine; Referring Provider Family Medicine; Visit Provider Family Medicine
DX: I10 Essential (primary) hypertension (principal); E03.9 Hypothyroidism, unspecified
CPT/HCPCS: 36415; 80048; 80061; 84436; 84443

== ENCOUNTER 2020-09-17 06:25 | Day surgery (SDC) | payer MEDICAID, SELFPAY ==
[2019-09-05 09:39] VITALS: BMI 30.8
[2020-09-17] VITALS (10 sets, daily range): BP systolic 77–137; BP diastolic 45–72; PULSE 59–97; RESP 16; TEMP 36.3–36.8; O2SAT 95–99; BMI 29.8
--- NOTE | 2020-09-17 06:58 | H&P.OPEN ---
History of Present Illness Date of Admission: 09/17/20 The patient is a 65 year old M who presents for endoscopy. Patient had a colonoscopy by myself in 2016 was noted to have polyps at that time and he is here for repeat colonoscopy. Past Medical/Surgical History - Planned Operation Planned Operative Procedure/s: cscope open access Date of Operative Procedure: 09/17/20 Permit Signed: No S.O.S: No Is This Patient Having a Total Joint: No - Previous Hospitalizations/Surgeries HX Hospitalizations: No HX of Surgeries: prostatectomy 2014. right knee scope 2006. cscope. bronchoscopy 2002. right tkr 2019 Any Problems With Anesthesia: No - states short term dyslexia after anesthesia You/Your Family Experience Fever (Hyperthermia) With Anes: No Cholinesterase deficiency: No - Cardiovascular Hx Chest Pain within Last 2 months: No Hx of Irregular Heartbeat and/or Afib: No Hx Heart Attack: No Hx Congestive Heart Failure: No Hx Rheumatic Fever: No Hx Hypertension: Yes - controlled with med Hx Internal Defibrillator: No Hx Pacemaker: No Hx Cardiac Catheterization: No Hx Cardiac Surgery/Stents/Etc.: No Hx Stress Test: No - echo 2017 HX Edema: No Hx Pain in Legs when Walking/Leg Cramps: No - . - Respiratory Chronic Cough: No HX of Shortness of Breath: No Hoarseness: No Hx Chronic Obstructive Pulmonary Disease (COPD): No Hx Asthma: No Hx Emphysema: No Hx Sleep Apnea: Yes CPAP: Yes BIPAP: No Hx Oxygen Use at Home: No Hx Respiratory Tract Infection/Cold (presently): No Result (for STOP score): Positive Hx Smoking: Yes - quit yrs ago Smoking Status: Former smoker - Gastrointestinal Hx Gastroesophageal Reflux: Yes Controlled With Meds: Yes Hx Gastrointestinal Disorders: No - polyp removed Hx Gastrointestinal Bleed: No Hx Ulcer: No Hx Hiatal Hernia: No Difficulty Chewing/Swallowing: No Recent Onset of Swallowing Problems: No Special diet followed at home: No Hx Unplanned Weight Loss of 20#: No HX Unplanned Weight Gain of 20#: No - Neurological Hx Seizures: No HX Syncope/Blackout Spells/Unconsciousness: No Hx CVA/Stroke: No Hx Transient Ischemic Attacks (TIA): No Hx Multiple Sclerosis: No Hx Parkinson's Disease: No Hx Head/Neck Injury: No Hx Headaches: No Hx Back Injury/Pain: Yes - lower back pain/ruptured disc in the past Recent Onset of Speech Difficulty: No Restless Legs: Yes Does patient have nerve stimulator: No Patient instructed to have device shut off: No Rep notified?: No - Blood Disorder Hx Leukemia: No Bleeding Tendencies: No Hx Deep Vein Thrombosis: No Hx High Cholesterol: No Blood Transmitted Disease: No Hx Hepatitis: No Hx Cirrhosis: No Hx Anemia: No Hx Blood Disorders: No - Genitourinary Hx Renal Disease: No - prostatectomy for cancer 2015 - Musculoskeletal Hx Arthritis: Yes Hx Rheumatoid Arthritis: No Hx Gout: No Recent Onset of an Orthopedic Problem: No - Endocrine Hx Diabetes: No Thyroid Disease: Yes - on med Hx Steroid Therapy: No - . - Psycho/Social Hx Substance Use: No Hx Alcohol Use: Yes - 1-2 drinks qod Hx Anxiety: No Hx Depression: Yes - in the past Mental Illness: No Hx Dementia: No - Miscellaneous Hx Cancer: Yes - prostate Recent Exposure to Contagious Disease: No Active MRSA: No Hx of C-Diff: No Any Loose Teeth: No Allergies No Known Allergies Allergy (Verified 09/13/20 11:34) - Discharge Is Pt Admitted From a Intermediate, or a Nursing Home: No After D/C, Where Do you Plan to Go: Return Home - From the PAT History Number of Risk Factors: 5 - Physical Exam Vitals/I&O's: Vital Signs Temp Pulse Resp BP Pulse Ox 97.9 F 71 16 137/72 H 97 09/17/20 06:46 09/17/20 06:46 09/17/20 06:46 09/17/20 06:46 09/17/20 06:46 Oxygen Delivery Method Room Air Weight: 196 lb 3.382 oz Body Mass Index (BMI) 29.8 General: Alert, Oriented x3 Lungs: Clear to auscultation Cardiovascular: Regular rate, Regular Rhythm, No murmurs Abdomen: Bowel Sounds Present, Soft, Non Tender, Non-Distended Microbiology Past 72 Hours 09/14/20 14:00 Interface Orders SARS-CoV-2 Antigen (Rapid) - Final Assessment/Plan Assessment: Personal history of colonic polyps Plan: We will be to perform a colonoscopy. Surgery Risks - Colonoscopy Risks Include but are not Limited To: Risks include but are not limited to: Bleeding, perforation requiring further surgery, inability to complete colonoscopy requiring barium enema.
[2020-09-17] MEDS: Lactated Ringers 1,000 ML 100 ML IV (07:00)
--- NOTE | 2020-09-17 07:30 | COLBX_PTH ---
PATIENT: SOURAV MCCAULEY LOC: EN U#:[id number] AGE/SX: 65/M ROOM: RE09/17/[address]: Dr. Sourav Steven MD : 1955 BED: DIS: 09/17/2020 SPEC #: [id number] RECD: 09/17/20 11:39 STATUS: RUPALI RUBIN #: [id number] AMY: 09/17/20 07:[address]: Sourav Steven DEPT: SURGICAL PATHOLOGY RECD BY: Julio C Astorga ENTERED: 09/17/20 13:07 SP TYPE: COLON BX OTHR DR: Dr. Elida Vivas MD Tissues: Sigmoid colon biopsy Procedures: Surgery Specimen Level IV HEADER OPERATION: Colonoscopy - open access (MAC) PRE-OP DIAGNOSIS: Colonic polyps TISSUE SUBMITTED: Polyp sigmoid colon MICROSCOPIC DIAGNOSIS Polyp sigmoid colon, biopsy: Consistent with inflammatory polyp. See microscopic description and comment. SJ:annemarie 09/18/20 COMMENT Correlation with clinical, endoscopic findings and appropriate follow up are necessary. MICROSCOPIC DESCRIPTION Slides are reviewed. The specimen shows a polypoid fragment of mucosal tissue with acute and chronic inflammation and granulation tissue reaction. The epithelium is predominantly denuded. GROSS DESCRIPTION Received in fixative is one container labeled with the patient's name and designated polyp sigmoid colon. The specimen consists of one irregular fragment of light aly soft tissue that measures 0.3 x 0.3 x 0.1 cm. The specimen is totally submitted in one cassette. / SIRIA:annemarie 09/17/20 TC:5 CPT: 74921
--- NOTE | 2020-09-17 08:00 | OP.CCLET_ITS ---
09/17/2020 Elida Vivas [address] [place] [address] Re : Colonoscopy procedure for Sourav Hernandez Dear Dr. Vivas This procedure was performed on Thursday, September 17, 2020. My impressions and recommendations are as follows: Impressions : - One 11 mm polyp in the sigmoid colon. Biopsied. Clip (MR isai) was placed. The location of this polyp was behind a fold and no matter how I tried to turn the scope I was unable to get a good visualization of the base of this. I placed a metal clip in the area to marya it and I am going to obtain a flat plate and upright on him so that we have an accurate marking where this is. I am going to have to send him to another disability services coordinator for a repeat colonoscopy versus sending him to colorectal surgeon for possible sigmoid colectomy. - Diverticulosis in the sigmoid colon. No specimens collected. - Non-bleeding internal hemorrhoids. - The examination was otherwise normal. Recommendations : - Discharge patient to home. - Resume previous diet. - Continue present medications. - Await pathology results. - Repeat colonoscopy at appointment to be scheduled for surveillance after piecemeal polypectomy. - Return to my office in 1 week. - Perform a flat plate and upright abdominal x-ray today. My findings are described in the full procedure note, which is enclosed. If I can be of further assistance, please feel free to contact me at Doctor phone number(s): , Fax: [phone], Work: . Sincerely, MD Sourav Archer MD 09/17/2020 7:59:42 AM This report has been signed electronically.
--- NOTE | 2020-09-17 08:00 | OP.COLON_ITS ---
Patient Name: Sourav Hernandez Procedure Date: 09/17/2020 7:02 AM Date of : 1955 Age: 65 Procedure: Colonoscopy Indications: High risk colon cancer surveillance: Personal history of colonic polyps Providers: Sourav Steven MD Referring MD: Elida Vivas Medicines: See the Anesthesia note for documentation of the administered medications Patient Profile: This is a 65 year old male. Refer to note in patient chart for documentation of history and physical. Last Colonoscopy: 2015. Complications: No immediate complications. Procedure: Pre-Anesthesia Assessment: - Prior to the procedure, a History and Physical was performed, and patient medications and allergies were reviewed. The patient's tolerance of previous anesthesia was also reviewed. The risks and benefits of the procedure and the sedation options and risks were discussed with the patient. All questions were answered, and informed consent was obtained. Prior Anticoagulants: The patient has taken no previous anticoagulant or antiplatelet agents. ASA Grade Assessment: II - A patient with mild systemic disease. After reviewing the risks and benefits, the patient was deemed in satisfactory condition to undergo the procedure. After I obtained informed consent, the scope was passed under direct vision. Throughout the procedure, the patient's blood pressure, pulse, and oxygen saturations were monitored continuously. The adult colonoscope was introduced through the anus and advanced to the cecum, identified by appendiceal orifice and ileocecal valve. The colonoscopy was performed without difficulty. The patient tolerated the procedure well. The quality of the bowel preparation was good. Scope In: 7:36:27 AM Scope Withdrawal Time 0 hours 10 minutes 10 seconds Scope Out: 7:53:16 AM Total Procedure Duration Time 0 hours 16 minutes 49 seconds Findings: A 11 mm polyp was found in the sigmoid colon. The polyp was sessile. This was biopsied with a cold forceps for histology. For location marking, one hemostatic clip was successfully placed (MR unsafe). There was no bleeding at the end of the procedure. Multiple small-mouthed diverticula were found in the sigmoid colon. No biopsies or other specimens were collected for this exam. Non-bleeding internal hemorrhoids were found during retroflexion. The hemorrhoids were mild and small. The exam was otherwise without abnormality. Impression: - One 11 mm polyp in the sigmoid colon. Biopsied. Clip (MR unsafe) was placed. The location of this polyp was behind a fold and no matter how I tried to turn the scope I was unable to get a good visualization of the base of this. I placed a metal clip in the area to marya it and I am going to obtain a flat plate and upright on him so that we have an accurate marking where this is. I am going to have to send him to another risk management director for a repeat colonoscopy versus sending him to colorectal surgeon for possible sigmoid colectomy. - Diverticulosis in the sigmoid colon. No specimens collected. - Non-bleeding internal hemorrhoids. - The examination was otherwise normal. Recommendation: - Discharge patient to home. - Resume previous diet. - Continue present medications. - Await pathology results. - Repeat colonoscopy at appointment to be scheduled for surveillance after piecemeal polypectomy. - Return to my office in 1 week. - Perform a flat plate and upright abdominal x-ray today. Procedure Code(s): --- Professional --- 73935, Colonoscopy, flexible; with biopsy, single or multiple 35577, Unlisted procedure, colon Diagnosis Code(s): --- Professional --- Z86.010, Personal history of colonic polyps D12.5, Benign neoplasm of sigmoid colon K64.8, Other hemorrhoids K57.30, Diverticulosis of large intestine without perforation or abscess without bleeding CPT copyright 2017 [employer]. All rights reserved. The codes documented in this report are preliminary and upon public health nurse review may be revised to meet current compliance requirements. MD Sourav Archer MD 09/17/2020 7:59:42 AM This report has been signed electronically. Number of Addenda: 0 Note Initiated On: 09/17/2020 7:02 AM
--- NOTE | 2020-09-17 08:01 | RAD_ITS ---
STUDY: X-RAY - ABDOMEN/PELVIS REASON FOR EXAM: Male, 65 years old. IDENTIFY SIGMOID MARKING CLIP, S/P COLONOSCOPY TECHNIQUE: AP supine and upright views of the abdomen and pelvis. COMPARISON: None. FINDINGS: Mild increased markings at the left lung base suggestive of scarring. There is an unremarkable bowel gas pattern. There is no demonstrated free abdominal air. The marking clip is seen in the region of the sigmoid colon. Normal soft tissue structures. There are diffuse degenerative changes of the visualized lumbar spine. Dextroscoliosis. RAD/Abd Inc Decub and/or Erect IMPRESSION: The metallic clip is in the region of the sigmoid colon. Electronically Signed: Vinod Varma, at 13:46 EST , Service support ,
== END 2020-09-17 09:35 | disposition home or self-care (01) ==
LOC: EN 06:25 → AC 06:25
PROVIDERS: PCP Family Medicine; Referring Provider Family Medicine; Visit Provider Surgery
PROC: 0DJD8ZZ Inspection of Lower Intestinal Tract, Via Natural or Artificial Opening Endoscopic (ICD-10-PCS; CPT 45378; principal; 2020-09-17 07:25)
DX: Z12.11 Encounter for screening for malignant neoplasm of colon (principal); Z87.19 Personal history of other diseases of the digestive system; I10 Essential (primary) hypertension; Z87.891 Personal history of nicotine dependence; Z20.828 Contact with and (suspected) exposure to other viral communicable diseases; K21.9 Gastro-esophageal reflux disease without esophagitis; G25.81 Restless legs syndrome; K57.30 Diverticulosis of large intestine without perforation or abscess without bleeding; K64.8 Other hemorrhoids; D12.5 Benign neoplasm of sigmoid colon; Z79.899 Other long term (current) drug therapy; G47.30 Sleep apnea, unspecified; Z85.46 Personal history of malignant neoplasm of prostate
CPT/HCPCS: 45380; 74019; 87426; 88305; C9803; J7120; J1610

== ENCOUNTER → 2021-01-10 10:26 | Outpatient (CLI) | payer MEDICAID, SELFPAY ==
--- NOTE | 2021-01-10 10:29 | RAD_ITS ---
STUDY: X-RAY - LUMBAR SPINE REASON FOR EXAM: Male, 65 years old. BACK PAIN TECHNIQUE: 5 view(s) of the lumbar spine were obtained. COMPARISON: None FINDINGS: Normal lumbar lordosis. There is a levoscoliosis of the lumbar spine. There is a normal alignment of the vertebrae. There is multilevel endplate spondylosis of the lumbar vertebrae. There is multi-level degenerative disc disease with multi-level disc space narrowing. There is no demonstrated fracture. The soft tissue structures are unremarkable. RAD/L/S Spine Min 4 Views IMPRESSION: Degenerative changes of the spine, as detailed above. Electronically Signed: Tico Dorado MD at 10:44 EST , Service support ,
== END ==
PROVIDERS: PCP Family Medicine; Referring Provider Family Medicine; Visit Provider Family Medicine
DX: M54.9 Dorsalgia, unspecified (principal)
CPT/HCPCS: 72110

== ENCOUNTER → 2021-02-20 10:17 | Outpatient (CLI) | payer MEDICAID, SELFPAY ==
[2021-02-20 12:36] LABS: PSA,Total- Diagnostic < 0.01 ng/mL (0.0-4.0)
== END ==
PROVIDERS: PCP Family Medicine; Referring Provider Urology; Visit Provider Urology
DX: C61 Malignant neoplasm of prostate (principal)
CPT/HCPCS: 36415; 84153

== ENCOUNTER → 2021-03-06 11:29 | Outpatient (CLI) | payer MEDICAID, SELFPAY ==
[2021-03-06 13:28] LABS: Thyroid Stim Hormone (TSH) 2.62 uIU/mL (0.358-3.74)
== END ==
PROVIDERS: PCP Family Medicine; Referring Provider Family Medicine; Visit Provider Family Medicine
DX: E03.9 Hypothyroidism, unspecified (principal); C61 Malignant neoplasm of prostate
CPT/HCPCS: 36415; 84436; 84443

== ENCOUNTER 2022-02-05 07:49 | Outpatient (CLI) | payer MEDICAID, SELFPAY ==
[2022-02-05 10:27] LABS: PSA,Total - Annual Screen < 0.01 ng/mL (0.00-4.00)
[2022-02-05 10:36] LABS: Microalbumin,Random Urine 29.5 mg/L (NO RANGE EST.)
[2022-02-05 10:42] LABS: Anion Gap 5 (5-15); BUN 22 mg/dL (7-18); BUN/Creat Ratio 17.7 RATIO (10-20); Calcium,Total 9.3 mg/dL (8.5-10.1); Chloride 109 mmol/L (98-107); Cholesterol 144 mg/dL (200); Creatinine, Serum 1.24 mg/dL (0.70-1.30); EST Glomerular Filtration Rate 62 mL/min (>60); Est Glom Filt Rate - Afr Amer 75 mL/min (>60); Glucose 93 mg/dL (74-106); High Density Lipoprotein 34 mg/dL; Potassium 3.9 mmol/L (3.5-5.1); Sodium Level 138 mmol/L (136-145); T4 Total, Thyroxin 10.2 ug/dL (4.5-12.1); Thyroid Stim Hormone (TSH) 2.13 uIU/mL (0.358-3.74); Triglycerides 159 mg/dL; Very Low Density Lipoprotein 32 mg/dL (5-40)
[2022-02-05 14:47] LABS: PSA,Total- Diagnostic < 0.01 ng/mL (0.0-4.0)
== END 2022-02-05 23:59 | disposition home or self-care (01) ==
LOC: MTLAB 07:51
PROVIDERS: Urology; PCP Family Medicine; Referring Provider Family Medicine; Visit Provider Family Medicine
DX: C61 Malignant neoplasm of prostate (principal); I10 Essential (primary) hypertension; E03.9 Hypothyroidism, unspecified; Z12.5 Encounter for screening for malignant neoplasm of prostate
CPT/HCPCS: 84153; 36415; 80048; 80061; 82043; 84436; 84443; G0103

== ENCOUNTER 2022-05-14 12:14 | Emergency (ER) | payer MEDICAID, SELFPAY ==
[2022-05-14 12:14] VITALS: BP 135/79; PULSE 89; RESP 16; TEMP 36.5; O2SAT 99; BMI 31.3
--- NOTE | 2022-05-14 12:26 | RAD_ITS ---
STUDY: X-RAY - LEFT HAND, ATTENTION INDEX FINGER REASON FOR EXAM: Male, 66 years old. Injury -- index finger TECHNIQUE: 3 view(s) of the finger were obtained. COMPARISON: None. FINDINGS: Normal metacarpal head. Normal metacarpophalangeal joint. Normal proximal phalanx. Nondisplaced fracture along the dorsal aspect of the distal portion of the middle phalanx of the index finger. Normal distal phalanx. Normal proximal interphalangeal joint. Normal distal interphalangeal joint. Soft tissue swelling. RAD/Finger(s) Min 2 Views IMPRESSION: Nondisplaced fracture along the dorsal aspect of the distal portion of the middle phalanx of the index finger. Soft tissue swelling. Electronically Signed: Vinod Varma MD at 13:00 EDT ,
--- NOTE | 2022-05-14 12:27 | EDS_ITS ---
HPI History of Present Illness Chief Complaint: Laceration Detail of Chief Complaint: Left index finger laceration Informant: patient Onset/Context/Timing Onset: Today Narrative Narrative: Patient present secondary to left index finger laceration. He was using a grinding tool that kicked back and caught him on the left index finger. He has a skin avulsion over the PIP joint. He was concerned that he injury may have gone down to the level of the bone. [facility] Medical History GERD (gastroesophageal reflux disease) History of colonic polyps HTN (hypertension) Hypothyroidism Home Medications levothyroxine 50 mcg tablet 50 mcg PO DAILY thyroid 03/15/17 [History Last Taken Unknown] amlodipine 5 mg tablet 5 mg PO QHS bp #30 tabs 06/08/19 [History Last Taken Unknown] lisinopril 20 mg tablet 20 mg PO DAILY bp #30 tabs 06/29/19 [History Last Taken 09/17/20 03:30 20 MG] ascorbic acid (vitamin C) 500 mg tablet,extended release 500 mg PO DAILY supplement 07/19/19 [History Last Taken Unknown] cyanocobalamin (vitamin B-12) 1,000 mcg tablet 1,000 mcg PO DAILY supplement 07/19/19 [History Last Taken Unknown] esomeprazole magnesium 20 mg tablet,delayed release 20 mg PO DAILY gerd 07/19/19 [History Last Taken Unknown] glucosamine sulf dipot chlr,msm,chond 550 mg-C 30 mg-cat 1 mg capsule 1 ea PO DAILY supplement 07/19/19 [History Last Taken Unknown] hyalur ac-chond sul-colg II-AA 40 mg-80 mg-400 mg capsule 1 ea PO DAILY supplement 07/19/19 [History Last Taken Unknown] multivitamin with minerals 1 ea PO DAILY supplement 07/19/19 [History Last Taken Unknown] amoxicillin 500 mg capsule 500 mg PO ONCE #4 caps 11/18/19 [Rx Last Taken Unknown] cholecalciferol (vitamin D3) 25 mcg (1,000 unit) chewable tablet 1,000 unit PO DAILY 09/13/20 [History Last Taken Unknown] magnesium oxide 500 mg capsule 500 mg PO DAILY 09/13/20 [History Last Taken Unknown] cephalexin 500 mg capsule 500 mg PO Q12 #14 caps 05/14/22 [Rx Last Taken Unknown] Allergy/AdvReac Type Severity Reaction Status Date / Time No Known Allergies Allergy Verified 05/14/22 12:14 Surgical History History of colonoscopy (~09/2020) History of prostatectomy Social History Smoking Status: Former smoker ROS ROS ED Constitutional Constitutional ED: Denies chills or fever(s) Eyes Eyes: Denies change in vision or discharge from eye(s) ENT ENT ED: Denies discharge from eye(s), rhinorrhea or sore throat Cardiovascular Cardiovascular: Denies chest pain or palpitations Respiratory/Chest Respiratory/Chest: Denies cough or dyspnea Gastrointestinal Gastrointestinal: Denies abdominal pain, diarrhea, nausea or vomiting Genitourinary Genitourinary ED: Denies difficulty urinating or dysuria Musculoskeletal Musculoskeletal: Reports extremity pain; Denies back pain Integumentary Reports other Details: Skin avulsion left index finger ; Denies Abrasions or rash Neurologic Neurologic: Denies headache(s) or weakness Psychiatric Psychiatric: Denies anxiety or depression Allergic/Immunologic Allergic/Immunologic ED: Denies lip swelling or urticaria EXAM Physical Exam Const Vital Signs: 05/14/22 12:14 Temperature 97.7 F L Temperature Source Temporal Pulse Rate 89 Respiratory Rate 16 Blood Pressure 135/79 H Blood Pressure Mean 97 Pulse Ox 99 Oxygen Delivery Method Room Air Positive well nourished and well developed General Appearance ED: well developed HEENT Reports normocephalic and head/scalp atraumatic Eyes PERRL and EOMs intact bilaterally Neck supple Chest Wall inspection of chest normal and palpation of chest normal Resp normal respiratory effort and clear to auscultation bilaterally Cardio regular rate and regular rhythm GI Palpation: soft Extremity Extremity Narrative: Skin avulsion over the extensor surface of the left index finger PIP joint. Full range of motion without difficulty. Good cap refill distally with normal sensation. Neuro oriented x3 and no sensory deficits noted Sensorium / Orientation: alert Motor Exam: strength 5/5 throughout Psych mental status grossly normal Skin Skin Narrative: Skin avulsion as noted above. MDM MDM MDM Narrative Medical decision making narrative: Tetanus update provided. Left index finger x-ray ordered. Radiography Diagnostic Testing: Clinical Impression(s) from Imaging Studies Finger X-Ray 05/14/22 12:26 IMPRESSION: Nondisplaced fracture along the dorsal aspect of the distal portion of the middle phalanx of the index finger. Soft tissue swelling. Electronically Signed: Vinod Varma MD at 13:00 EDT , Treatment and Re-Evaluation Narrative: Left index finger x-ray per my interpretation reveals no obvious fracture. Radiologist feels there may be a nondisplaced fracture along the distal portion of the middle phalanx. On repeat exam patient has no pain in this area. I believe this is likely arthritic changes that are noted on the x-ray. Patient's wound is cleansed. Small piece of Surgifoam was placed over the wound and dressing applied. AlumaFoam splint is placed. Patient will be treated with a course of Keflex, first dose given here. Patient to follow-up with his PCP in 1 week. Discharge Plan Triage Chief Complaint: Laceration ED Provider: Joi Bear Dx/Rx/DC Orders Clinical Impression: Avulsion of skin, Finger laceration Instructions: ED Laceration Small or ..., ED Skin Avulsion Prescriptions: New cephalexin 500 mg capsule 500 mg PO Q12 Qty: 14 0RF No Action amlodipine 5 mg tablet 5 mg PO QHS Qty: 30 Label Comments: Take 1 tablet by mouth daily lisinopril 20 mg tablet 20 mg PO DAILY Qty: 30 Label Comments: TAKE 1 TABLET ONCE DAILY levothyroxine 50 MCG tablet 50 mcg PO DAILY cyanocobalamin (vitamin B-12) 1,000 MCG tablet 1,000 mcg PO DAILY multivitamin with minerals 1 EACH tablet 1 ea PO DAILY ascorbic acid (vitamin C) 500 MG tablet extended release 500 mg PO DAILY hyalur ac-chond sul-colg II-AA 1 EACH capsule 1 ea PO DAILY esomeprazole magnesium 20 MG tablet,delayed release (DR/EC) 20 mg PO DAILY glucos sul [id number] 1 EACH capsule 1 ea PO DAILY magnesium oxide 500 MG capsule 500 mg PO DAILY cholecalciferol (vitamin D3) 25 MCG tablet,chewable 1,000 unit PO DAILY amoxicillin 500 mg capsule 500 mg PO ONCE Qty: 4 0RF Rx Instructions: take 4 tabs within 1 hr of dental procedure Primary Care Provider: Elida Vivas Referrals: Elida Vivas MD [Primary Care Provider] - Activity Restrictions/Additional Instructions: As discussed, please keep wound covered for at least the next 3 days. Change dressing daily to ensure no sign of infection. Disposition Disposition: Home, Self Care
[2022-05-14] MEDS: Diphth,Pertuss(Acell),Tet Vac 0.5 ML Vial IM (12:47)
[2022-05-14 13:26] VITALS: RESP 18
[2022-05-14] MEDS: Cephalexin 250 MG Capsule 500 MG PO (13:30)
== END 2022-05-14 13:33 | disposition home or self-care (01) ==
PROVIDERS: Emergency Provider Emergency Medicine; PCP Family Medicine; Visit Provider Emergency Medicine
DX: S61.211A Laceration without foreign body of left index finger without damage to nail, initial encounter (principal); W23.0XXA Caught, crushed, jammed, or pinched between moving objects, initial encounter; I10 Essential (primary) hypertension; E03.9 Hypothyroidism, unspecified; K21.9 Gastro-esophageal reflux disease without esophagitis; Z87.891 Personal history of nicotine dependence; Z79.899 Other long term (current) drug therapy; Z23 Encounter for immunization
CPT/HCPCS: 73140; 90471; 90715; 99283

== ENCOUNTER → 2023-02-10 | Outpatient (CLI) | payer MEDICARE, MEDICAID, SELFPAY ==
[2023-02-10 13:08] LABS: Microalbumin,Random Urine 35.6 mg/L (NO RANGE EST.); Microalbumin:Creatinine Ratio 13.4 mg/g CRE (<30 mg/g CRE)
[2023-02-10 13:41] LABS: Anion Gap 10 (5-15); BUN 30 mg/dL (7-18); BUN/Creat Ratio 23.3 RATIO (10-20); Calcium,Total 9.3 mg/dL (8.5-10.1); Chloride 108 mmol/L (98-107); Cholesterol 126 mg/dL (200); Creatinine, Serum 1.29 mg/dL (0.70-1.30); EST Glomerular Filtration Rate 59 mL/min (>60); Est Glom Filt Rate - Afr Amer 72 mL/min (>60); Glucose 147 mg/dL (74-106); High Density Lipoprotein 33 mg/dL; PSA,Total - Annual Screen < 0.01 ng/mL (0.00-4.00); Potassium 3.6 mmol/L (3.5-5.1); Sodium Level 138 mmol/L (136-145); T4 Total, Thyroxin 8.9 ug/dL (4.5-12.1); Thyroid Stim Hormone (TSH) 1.32 uIU/mL (0.358-3.74); Triglycerides 151 mg/dL; Very Low Density Lipoprotein 30 mg/dL (5-40)
== END | disposition home or self-care (01) ==
PROVIDERS: PCP Family Medicine; Referring Provider Urology; Visit Provider Urology
DX: C61 Malignant neoplasm of prostate (principal); E03.9 Hypothyroidism, unspecified; I10 Essential (primary) hypertension; Z12.5 Encounter for screening for malignant neoplasm of prostate
CPT/HCPCS: 36415; 80048; 80061; 82043; 82570; 84153; 84436; 84443; G0103

== ENCOUNTER → 2023-12-01 | Outpatient (CLI) | payer MEDICARE, MEDICAID, SELFPAY ==
--- NOTE | 2023-12-01 17:30 | RAD_ITS ---
STUDY: X-RAY - RIGHT HAND REASON FOR EXAM: Male, 68 years old. Arthritis. TECHNIQUE: 3 views of the right hand. COMPARISON: None. FINDINGS: Normal radiocarpal articulation. Normal distal radioulnar joint. Normal visualized carpal bones. Normal carpal articulations. Normal carpometacarpal articulation of the thumb. Normal second through fifth carpometacarpal joints. Normal metacarpi. Normal metacarpophalangeal joint of the thumb. There is mild degenerative arthrosis of the interphalangeal joint of the thumb. Normal proximal and distal phalanges of the thumb. There is mild degenerative arthrosis at the second MCP joint. Normal metacarpophalangeal joints of the third through fifth fingers. Normal proximal interphalangeal joints of the second through fifth fingers. There is mild degenerative arthrosis of the second through fifth DIP joints. Normal phalanges of the second through fifth fingers. There is no demonstrated acute fracture. There is soft tissue swelling of the distal fingers. 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 No demonstrated acute fracture. Electronically Signed: Nikko Agarwal MD at 11:09 EST ,
[2023-12-01 18:08] LABS: Absolute Lymphocyte Count 1.83 X10^3/uL (0.83-4.51); Absolute Neutrophil Count 7.8 X10^3/uL (2.0-7.7); Basophil# 0.07 X10^3/uL; Basophil% 0.6 % (0-1); Eosinophil# 0.43 X10^3/uL; Eosinophils% 3.8 % (0-5); Hematocrit 47.6 % (40-54); Hemoglobin 15.6 g/dL (13.0-16.5); Lymphocyte # 1.83 X10^3/ul (0.83-4.51); Lymphocyte % 16.3 % (19-41); Mean Corp Hgb Conc 32.8 g/dL (32-36); Mean Corpuscular Hgb 30.4 pg (27.0-32.0); Mean Corpuscular Volume 92.6 fL (80-94); Mean Platelet Vol. 10.1 fl (6.2-12.0); Monocyte# 1.07 X10^3/uL; Monocyte% 9.5 % (0-10); NRBC Flagged by Analyzer 0 % (0-5); Neutrophil % 69.5 % (47-70); Platelet Count 283 K/mm3 (150-450); RBC Distribution Width CV 12.8 % (11.6-14.6); RBC Distribution Width SD 43.5 fl (35.1-43.9); Red Blood Count 5.14 M/mm3 (4.6-6.2); White Blood Count 11.2 K/mm3 (4.4-11.0)
[2023-12-01 18:32] LABS: AST(SGOT) 23 U/L (15-37); Alanine Aminotransfer ALT/SGPT 41 U/L (16-61); Albumin, Serum 3.8 g/dL (3.2-5.0); Alkaline Phosphatase 65 U/L (45-117); Anion Gap 7 (5-15); BUN 30 mg/dL (7-18); Calcium,Total 9.6 mg/dL (8.5-10.1); Chloride 107 mmol/L (98-107); Cholesterol 143 mg/dL (200); Creatinine, Serum 1.43 mg/dL (0.70-1.30); EST Glomerular Filtration Rate 53 mL/min (>60); Est Glom Filt Rate - Afr Amer 64 mL/min (>60); Globulin 3.7 g/dL (2.2-4.2); Glucose 133 mg/dL (74-106); High Density Lipoprotein 32 mg/dL; PSA,Total - Annual Screen < 0.01 ng/mL (0.00-4.00); Potassium 4.3 mmol/L (3.5-5.1); Protein, Total 7.5 g/dL (6.4-8.2); Rheumatoid Factor < 10.0 IU/mL (<15); Sodium Level 134 mmol/L (136-145); Thyroid Stim Hormone (TSH) 3.06 uIU/mL (0.358-3.74); Triglycerides 168 mg/dL; Very Low Density Lipoprotein 34 mg/dL (5-40)
[2023-12-03 08:29] LABS: PSA,Total- Diagnostic < 0.01 ng/mL (0.0-4.0)
[2023-12-03 11:08] LABS: ANTINUCLEAR ANTIBODIES DIRECT Negative (Negative)
== END | disposition home or self-care (01) ==
PROVIDERS: PCP Family Medicine; Referring Provider Family Medicine; Visit Provider Family Medicine
DX: M19.90 Unspecified osteoarthritis, unspecified site (principal); C61 Malignant neoplasm of prostate; E03.9 Hypothyroidism, unspecified; I10 Essential (primary) hypertension; Z12.5 Encounter for screening for malignant neoplasm of prostate
CPT/HCPCS: 36415; 73130; 80053; 80061; 84153; 84443; 85025; 86038; 86431; G0103

== ENCOUNTER → 2024-12-09 | Outpatient (CLI) | payer MEDICARE, SELFPAY ==
[2024-12-09 10:12] LABS: Absolute Lymphocyte Count 2.34 X10^3/uL (0.83-4.51); Absolute Neutrophil Count 4.2 X10^3/uL (2.0-7.7); Basophil# 0.07 X10^3/uL; Basophil% 0.9 % (0-1); Eosinophil# 0.36 X10^3/uL; Eosinophils% 4.6 % (0-5); Hemoglobin 15.2 g/dL (13.0-16.5); Lymphocyte # 2.34 X10^3/ul (0.83-4.51); Lymphocyte % 29.8 % (19-41); Mean Corp Hgb Conc 32.3 g/dL (32-36); Mean Corpuscular Hgb 30.7 pg (27.0-32.0); Mean Corpuscular Volume 94.9 fL (80-94); Mean Platelet Vol. 9.8 fl (6.2-12.0); Monocyte# 0.81 X10^3/uL; Monocyte% 10.3 % (0-10); NRBC Flagged by Analyzer 0 % (0-5); Neutrophil # 4.24 X10^3/uL (2.7-7.7); Platelet Count 271 K/mm3 (150-450); RBC Distribution Width SD 45.6 fl (35.1-43.9); Red Blood Count 4.95 M/mm3 (4.6-6.2); White Blood Count 7.9 K/mm3 (4.4-11.0)
[2024-12-09 10:29] LABS: ALB/GLOB Ratio 1.1 RATIO (0.9-2.4); AST(SGOT) 14 U/L (15-37); Alanine Aminotransfer ALT/SGPT 30 U/L (16-61); Albumin, Serum 3.6 g/dL (3.2-5.0); Alkaline Phosphatase 49 U/L (45-117); Anion Gap 9 (5-15); BUN 20 mg/dL (7-18); Calcium,Total 9.2 mg/dL (8.5-10.1); Chloride 105 mmol/L (98-107); Cholesterol 142 mg/dL (200); Creatinine, Serum 1.33 mg/dL (0.70-1.30); EST Glomerular Filtration Rate 57 mL/min (>60); Est Glom Filt Rate - Afr Amer 69 mL/min (>60); Globulin 3.4 g/dL (2.2-4.2); Glucose 91 mg/dL (74-106); High Density Lipoprotein 31 mg/dL; PSA,Total - Annual Screen < 0.01 ng/mL (0.00-4.00); Potassium 3.9 mmol/L (3.5-5.1); Sodium Level 138 mmol/L (136-145); Triglycerides 184 mg/dL; Very Low Density Lipoprotein 37 mg/dL (5-40)
[2024-12-11 15:08] LABS: Hemoglobin A1c 6.1 % (3.8-5.6)
== END | disposition home or self-care (01) ==
LOC: MTLAB 08:06
PROVIDERS: PCP Family Medicine; Referring Provider Family Medicine; Visit Provider Family Medicine
DX: Z00.00 Encounter for general adult medical examination without abnormal findings (principal); I10 Essential (primary) hypertension; Z12.5 Encounter for screening for malignant neoplasm of prostate
CPT/HCPCS: 36415; 80053; 80061; 83036; 84153; 85025; G0103